=== PATIENT | female | born 1940 | race Caucasian/White ===

== ENCOUNTER 2022-12-28 06:42 | Inpatient (IN) | payer MEDICARE, OTHER ==
[2022-12-28 07:17] LABS: Hemoglobin 11.6 g/dL (12.0-16.0); Mean Corpuscular Hemoglobin 36.9 pg (27.0-31.0); Mean Platelet Volume 6.6 fL (7.4-10.4); Platelet Count 332 10x3/uL (130-400); Red Blood Cell (RBC) Count 3.14 mill/uL (4.20-5.40); White Blood Cell (WBC) Count 7.1 10x3/uL (4.8-10.8)
[2022-12-28 07:23] LABS: INR-International Normal Ratio 0.9; Prothrombin Time 12.9 sec (12.0-14.7)
[2022-12-28 07:24] LABS: PTT 24.9 sec (22.9-36.1)
[2022-12-28 07:31] LABS: ALT (SGPT) 27 U/L (8-55); AST (SGOT) 28 U/L (5-34); Acetaminophen Less than 10.0 mcg/mL (10.0-30.0); Albumin 3.8 g/dL (3.4-4.8); Alcohol Less than 10 mg/dL (Less than 10); Alkaline Phosphatase 47 U/L (40-110); Anion Gap 16 mmol/L (10-20); BUN (Urea Nitrogen) 26 mg/dL (9.8-20.1); Bilirubin, Total 0.5 mg/dL (0.2-1.2); Calc. Creatinine Clearance 0 mL/min (70-130); Calcium 8.7 mg/dL (7.8-10.44); Carbon Dioxide 21 mmol/L (23-31); Chloride 107 mmol/L (98-107); Estimated GFR 69; Globulin 2.7 g/dL (2.4-3.5); Glucose 93 mg/dL (83-110); Potassium 3.8 mmol/L (3.5-5.1); Protein, Total 6.5 g/dL (5.8-8.1); Salicylate Less than 8.0 mg/dL (15.0-30.0); Sodium 140 mmol/L (136-145)
[2022-12-28 07:49] LABS: #Lymphocytes 2.5 thou/uL (1.20-3.40); #Monocytes 0.6 thou/uL (0.11-0.59); #Neutrophils 3.9 thou/uL (1.40-6.50); %Basophils 0.4 % (0.0-1.0); %Eosinophils 0.4 % (0.0-10.0); %Monocytes 8.8 % (0.0-10.0); %Neutrophils 55.4 % (42.0-75.0)
[2022-12-28 08:05] LABS: MDiff Complete? YES; Macrocytosis SLIGHT = 6-15 cells (100X) (0-5/hpf); Platelet Morphology Comment Appears Adequate; Polychromasia SLIGHT = 2-3 cells (100X) (0-2/hpf)
[2022-12-28] MEDS ORDERED: Aspirin Chewable 81 MG TAB ONE (08:29)
[2022-12-28] MEDS ORDERED: Iopamidol-370 76% 500 ML 1 ML ONE (08:34)
[2022-12-28 10:33] LABS: Troponin I Less than 0.010 ng/mL (< 0.028)
[2022-12-28] MEDS ORDERED: Ondansetron ODT 4 MG TAB PO PRN (10:49)
[2022-12-28] MEDS ORDERED: Acetaminophen 650 MG Suppository PR PRN (10:49)
[2022-12-28] MEDS ORDERED: Ondansetron PF 4 MG/2 ML Vial IVP PRN (10:49)
[2022-12-28] MEDS ORDERED: Acetaminophen 325 MG TAB PO PRN (10:49)
[2022-12-28] MEDS ORDERED: hydrALAZINE 20 MG/ML VIAL SLOW IVP PRN (10:49)
[2022-12-28] MEDS ORDERED: Clopidogrel Bisulfate 75 MG TAB PO SCH (12:00)
[2022-12-28] MEDS ORDERED: Clopidogrel Bisulfate 75 MG TAB ONE (12:29)
[2022-12-28 13:50] LABS: Troponin I 0.016 ng/mL (< 0.028)
[2022-12-28 14:41] LABS: SARS-CoV-2 NAA Rapid Test Not Detected (NotDetected)
[2022-12-28 16:15] VITALS: BMI 26.6
[2022-12-28] MEDS: Atorvastatin Calcium 40 MG TAB PO SCH (20:13)
[2022-12-29 05:30] LABS: #Eosinphils 0.1 thou/uL (0.0-0.7); #Lymphocytes 2.4 thou/uL (1.20-3.40); #Neutrophils 4.5 thou/uL (1.40-6.50); %Basophils 0.1 % (0.0-1.0); %Eosinophils 0.7 % (0.0-10.0); %Lymphocytes 30.2 % (21.0-51.0); %Monocytes 12.7 % (0.0-10.0); %Neutrophils 56.4 % (42.0-75.0); Mean Corpuscular Hemoglobin 37.3 pg (27.0-31.0); Mean Platelet Volume 6.6 fL (7.4-10.4); Platelet Count 284 10x3/uL (130-400); Red Blood Cell (RBC) Count 3.21 mill/uL (4.20-5.40)
[2022-12-29 05:50] LABS: Anion Gap 13 mmol/L (10-20); BUN (Urea Nitrogen) 16 mg/dL (9.8-20.1); Calc. Creatinine Clearance 63 mL/min (70-130); Calcium 8.8 mg/dL (7.8-10.44); Carbon Dioxide 21 mmol/L (23-31); Cardiac Risk 2.8 (Less than 4.5); Chloride 110 mmol/L (98-107); Cholesterol 126 mg/dl (< 200 Desired); Estimated GFR 73; Glucose 98 mg/dL (83-110); HDL Cholesterol 45 mg/dL (>60 Neg Risk); LDL Cholesterol, Calculated 63 mg/dL; Potassium 3.6 mmol/L (3.5-5.1); Sodium 140 mmol/L (136-145); Triglycerides 91 mg/dL (Less than 150)
[2022-12-29] MEDS: Clopidogrel Bisulfate 75 MG TAB PO SCH (09:19)
[2022-12-29] MEDS: Aspirin 81 mg Enteric Coated Tablet PO SCH (09:19)
[2022-12-29] MEDS ORDERED: Fioricet 325/50/40 mg Tablet PO PRN (19:42)
[2022-12-29] MEDS: Atorvastatin Calcium 40 MG TAB PO SCH (20:20)
[2022-12-29] MEDS: Pantoprazole 40 MG VIAL IVP SCH (20:21)
[2022-12-30 06:39] LABS: #Eosinphils 0.1 thou/uL (0.0-0.7); #Lymphocytes 2.1 thou/uL (1.20-3.40); #Monocytes 1.1 thou/uL (0.11-0.59); #Neutrophils 4.6 thou/uL (1.40-6.50); %Basophils 0.5 % (0.0-1.0); %Lymphocytes 26.5 % (21.0-51.0); %Monocytes 13.6 % (0.0-10.0); %Neutrophils 58.5 % (42.0-75.0); Hemoglobin 11.4 g/dL (12.0-16.0); Mean Corpuscular HGB CONC 33.7 g/dL (32.0-36.0); Mean Corpuscular Hemoglobin 37.6 pg (27.0-31.0); Mean Platelet Volume 7.2 fL (7.4-10.4); Platelet Count 273 10x3/uL (130-400); RBC Distribution Width 12.1 % (11.5-14.5); Red Blood Cell (RBC) Count 3.04 mill/uL (4.20-5.40); White Blood Cell (WBC) Count 7.9 10x3/uL (4.8-10.8)
[2022-12-30 07:06] LABS: Anion Gap 12 mmol/L (10-20); BUN (Urea Nitrogen) 15 mg/dL (9.8-20.1); Calc. Creatinine Clearance 60 mL/min (70-130); Calcium 8.7 mg/dL (7.8-10.44); Carbon Dioxide 22 mmol/L (23-31); Chloride 110 mmol/L (98-107); Estimated GFR 69; Glucose 95 mg/dL (83-110); Potassium 3.3 mmol/L (3.5-5.1); Sodium 141 mmol/L (136-145)
[2022-12-30] MEDS: Pantoprazole 40 MG VIAL IVP SCH ×2 (09:30→21:41)
[2022-12-30] MEDS: Clopidogrel Bisulfate 75 MG TAB PO SCH (09:31)
[2022-12-30] MEDS: Aspirin 81 mg Enteric Coated Tablet PO SCH (09:31)
[2022-12-30] MEDS ORDERED: Potassium Chloride 20 MEQ TAB PO SCH (10:00)
[2022-12-30] MEDS ORDERED: Nitroglycerin 0.4 MG TAB (25 Tab Bottle) SL PRN (10:07)
[2022-12-30] MEDS ORDERED: Estradiol 0.01% Vaginal Cream 42.5 gm Tube VAG SCH ×2 (10:15→21:00)
[2022-12-30] MEDS ORDERED: Alendronate Sodium 70 mg Tablet PO SCH ×2 (10:15→15:04)
[2022-12-30] MEDS ORDERED: Alendronate Sodium 70 mg Tablet DT SCH (12:00)
[2022-12-30] MEDS ORDERED: Bisacodyl 5 MG TAB PO PRN (14:37)
[2022-12-30] MEDS ORDERED: TURMERIC FORTE PO SCH (15:00)
[2022-12-30] MEDS ORDERED: SEMAGLUTIDE 2 MG/1.5 ML SC SCH (15:00)
[2022-12-30] MEDS ORDERED: Upadacitinib [Rinvoq] 15 MG Tab.Er.24h PO SCH (15:00)
[2022-12-30] MEDS: Metoprolol Tartrate 25 MG TAB PO SCH (21:40)
[2022-12-30] MEDS: Atorvastatin Calcium 40 MG TAB PO SCH (21:41)
[2022-12-31 05:17] LABS: #Eosinphils 0.1 thou/uL (0.0-0.7); #Lymphocytes 2.5 thou/uL (1.20-3.40); #Monocytes 0.8 thou/uL (0.11-0.59); #Neutrophils 2.8 thou/uL (1.40-6.50); %Basophils 0.4 % (0.0-1.0); %Eosinophils 1.3 % (0.0-10.0); %Lymphocytes 40.5 % (21.0-51.0); %Monocytes 12.9 % (0.0-10.0); %Neutrophils 44.9 % (42.0-75.0); Hemoglobin 11.5 g/dL (12.0-16.0); Mean Corpuscular HGB CONC 33.7 g/dL (32.0-36.0); Mean Corpuscular Hemoglobin 37.7 pg (27.0-31.0); Mean Platelet Volume 6.8 fL (7.4-10.4); Platelet Count 289 10x3/uL (130-400); RBC Distribution Width 12.1 % (11.5-14.5); Red Blood Cell (RBC) Count 3.05 mill/uL (4.20-5.40); White Blood Cell (WBC) Count 6.3 10x3/uL (4.8-10.8)
[2022-12-31 05:34] LABS: Anion Gap 12 mmol/L (10-20); BUN (Urea Nitrogen) 13 mg/dL (9.8-20.1); Calc. Creatinine Clearance 60 mL/min (70-130); Calcium 8.8 mg/dL (7.8-10.44); Carbon Dioxide 23 mmol/L (23-31); Chloride 111 mmol/L (98-107); Estimated GFR 68; Glucose 104 mg/dL (83-110); Sodium 142 mmol/L (136-145)
[2022-12-31] MEDS: Levothyroxine Sodium 88 MCG TAB PO SCH (05:53)
[2022-12-31] MEDS ORDERED: TURMERIC 400 MG PO SCH (09:00)
[2022-12-31] MEDS ORDERED: Non-Formulary Item 1 EACH (Folic Acid [Folic Acid] 0.8 MG Capsule) PO SCH (09:00)
[2022-12-31] MEDS ORDERED: TURMERIC FORTE PO SCH (09:00)
[2022-12-31] MEDS ORDERED: UPADACITINIB 15 MG PO SCH (09:00)
[2022-12-31] MEDS: Aspirin 81 mg Enteric Coated Tablet PO SCH (09:19)
[2022-12-31] MEDS: Folic Acid 1 MG TAB PO SCH (09:20)
[2022-12-31] MEDS: Clopidogrel Bisulfate 75 MG TAB PO SCH (09:21)
[2022-12-31] MEDS: Metoprolol Tartrate 25 MG TAB PO SCH ×2 (09:21→20:17)
[2022-12-31] MEDS: DULoxetine 30 MG CAP PO SCH (09:21)
[2022-12-31] MEDS: Pantoprazole 40 MG VIAL IVP SCH ×2 (09:26→20:17)
[2022-12-31] MEDS: predniSONE 5 MG TAB PO SCH (09:26)
[2022-12-31] MEDS: Upadacitinib [Rinvoq] 15 MG Tab.Er.24h PO SCH (09:28)
[2022-12-31] MEDS: TURMERIC FORTE PO SCH (09:28)
[2022-12-31] MEDS: Atorvastatin Calcium 40 MG TAB PO SCH (20:17)
[2023-01-01 05:27] LABS: #Eosinphils 0.1 thou/uL (0.0-0.7); #Lymphocytes 1.9 thou/uL (1.20-3.40); #Neutrophils 4.7 thou/uL (1.40-6.50); %Basophils 0.3 % (0.0-1.0); %Eosinophils 1.6 % (0.0-10.0); %Monocytes 12.4 % (0.0-10.0); %Neutrophils 60.7 % (42.0-75.0); Hemoglobin 12.1 g/dL (12.0-16.0); Mean Corpuscular HGB CONC 32.8 g/dL (32.0-36.0); Mean Corpuscular Hemoglobin 37.7 pg (27.0-31.0); Mean Platelet Volume 6.9 fL (7.4-10.4); Platelet Count 278 10x3/uL (130-400); RBC Distribution Width 12.2 % (11.5-14.5); Red Blood Cell (RBC) Count 3.21 mill/uL (4.20-5.40); White Blood Cell (WBC) Count 7.7 10x3/uL (4.8-10.8)
[2023-01-01] MEDS: Levothyroxine Sodium 88 MCG TAB PO SCH (05:34)
[2023-01-01 05:49] LABS: Anion Gap 15 mmol/L (10-20); BUN (Urea Nitrogen) 13 mg/dL (9.8-20.1); Calc. Creatinine Clearance 49 mL/min (70-130); Carbon Dioxide 19 mmol/L (23-31); Chloride 110 mmol/L (98-107); Potassium 3.7 mmol/L (3.5-5.1); Sodium 140 mmol/L (136-145)
[2023-01-01 05:50] LABS: ALT (SGPT) 16 U/L (8-55); AST (SGOT) 20 U/L (5-34); Albumin 3.4 g/dL (3.4-4.8); Alkaline Phosphatase 42 U/L (40-110); Bilirubin, Total 0.7 mg/dL (0.2-1.2); Calcium 8.8 mg/dL (7.8-10.44); Estimated GFR 54; Globulin 2.5 g/dL (2.4-3.5); Glucose 99 mg/dL (83-110); Protein, Total 5.9 g/dL (5.8-8.1)
[2023-01-01] MEDS ORDERED: Cyanocobalamin 1000 MCG/ML VIAL IM SCH (09:00)
[2023-01-01] MEDS: Folic Acid 1 MG TAB PO SCH (09:26)
[2023-01-01] MEDS: Aspirin 81 mg Enteric Coated Tablet PO SCH (09:26)
[2023-01-01] MEDS: predniSONE 5 MG TAB PO SCH (09:26)
[2023-01-01] MEDS: Metoprolol Tartrate 25 MG TAB PO SCH (09:26)
[2023-01-01] MEDS: Pantoprazole 40 MG VIAL IVP SCH (09:26)
[2023-01-01] MEDS: Clopidogrel Bisulfate 75 MG TAB PO SCH (09:26)
[2023-01-01] MEDS: TURMERIC FORTE PO SCH (09:27)
[2023-01-01] MEDS: Upadacitinib [Rinvoq] 15 MG Tab.Er.24h PO SCH (09:28)
[2023-01-01] MEDS: DULoxetine 30 MG CAP PO SCH (09:28)
[2023-01-01] MEDS ORDERED: TRAMADOL/ACETAMINOPHEN 37.5/325MG TAB PO PRN (11:08)
[2023-01-01 12:34] VITALS: TEMP 97.9
[2023-01-01 16:11] VITALS: BP 122/75
[2023-01-02] MEDS ORDERED: Aspirin Chewable 81 MG TAB PO SCH (09:00)
[2023-01-02] MEDS ORDERED: Atorvastatin Calcium 40 MG TAB PO SCH (09:00)
[2023-01-06] MEDS ORDERED: Non-Formulary Item 1 EACH (Semaglutide [Ozempic] 0.25 MG/0.2 ML Pen.Injctr) SQ SCH (09:00)
[2023-01-06] MEDS ORDERED: SEMAGLUTIDE 2 MG/1.5 ML SC SCH (09:00)
== END 2023-01-01 16:50 | DRG 64 ==
LOC: ERS 06:42 → ERHOLD 08:53 → NEURO 14:54
PROVIDERS: ADMIT Hospitalist; ATTEND Internal Medicine
DX: I63.9 Cerebral infarction, unspecified (principal); G93.6 Cerebral edema; F03.90 Unspecified dementia, unspecified severity, without behavioral disturbance, psychotic disturbance, mood disturbance, and anxiety; E03.9 Hypothyroidism, unspecified; I10 Essential (primary) hypertension; E78.5 Hyperlipidemia, unspecified; G47.33 Obstructive sleep apnea (adult) (pediatric); M06.9 Rheumatoid arthritis, unspecified; R29.705 NIHSS score 5; I65.21 Occlusion and stenosis of right carotid artery; I35.1 Nonrheumatic aortic (valve) insufficiency; G83.24 Monoplegia of upper limb affecting left nondominant side; F32.A Depression, unspecified; Z20.822 Contact with and (suspected) exposure to COVID-19; Z88.2 Allergy status to sulfonamides; Z98.890 Other specified postprocedural states; Z88.1 Allergy status to other antibiotic agents; Z88.8 Allergy status to other drugs, medicaments and biological substances
CPT/HCPCS: 36415; 36416; 70450; 70496; 70498; 70551; 71046; 80048; 80053; 80061; 80307; 84484; 85025; 85610; 85730; 93005; 93010; 93306; C9113; J1650; J7512; Q9967; U0002